=== PATIENT | female | born 1940 | race Caucasian/White ===

== ENCOUNTER 2024-11-19 18:23 | Observation (INO) | payer MEDICARE, SELFPAY ==
[2024-11-19] VITALS (10 sets, daily range): BP systolic 127–174; BP diastolic 66–114; BMI 25.8; BMI 25.2
--- NOTE | 2024-11-19 14:29 | ED.GENMED ---
History of Present Illness
General
Chief Complaint: Chest Pain
Source: patient and family
Exam Limitations: none
Time Seen by Provider: 11/19/24 14:03
Nursing documentation reviewed up to this point in time: agreed with
History of Present Illness
History of Present Illness:
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
uncommon for her developed pain in her chest into her left arm lasted about half hour or so mild nausea and sweatiness, did not go to her back or jaw, similar before never this severe, her mother lived into her 90s did have an CT with angina,
patient is currently chest pain-free
Past History
Past History
ED Past Medical History: Cancer (Breast cancer years ago with metastatic), Other (Metastatic) and Other (Reflux bladder issues); Negative CVA, HTN, CT, Renal failure or Seizures
ED Past Surgical History: Negative Cardiac
Social History
Tobacco: Non-smoker
Alcohol: Occasional
Drug: None
Living: with family
Employment: Retired
Phy Exam
Physical Exam
Physical Exam:
Physical Exam
General: no apparent distress, not acutely ill
Neck: No jaundice
Heart: s1/s2 regular rate and rhythm, no murmur. equal radial pulses.
Lungs: no acute respiratory distress. clear bilaterally
Abdomen: Nontender
Neuro: alert and oriented. no focal neurological deficits
Skin: no rash
Psychiatric: well kept. interactive and cooperative
Extremities: no edema.
Scores
Heart Score for Chest Pain Patients
STEMI patient?: No
History: Moderately Suspicious
ECG: Normal
Age: >/= 65 years
Risk Factors: 1 or 2 Risk Factors
Troponin: </= Normal Limit
Heart Score for Chest Pain Patients: 4
Heart Score Risk: 20.3% MACE over next 6 weeks
Course
Orders/Labs/Results
Orders:
Orders
11/19/24 Lunch
Cholesterol Lowering
At Your Request: Limited Participation
Cholesterol Lowering: Sodium, 2 Gram
11/19/24 13:16
ECG [Electrocardiogram (*1)] Urgent
Reason for Study: Chest Pain
EKG- Treatment ONCE
11/19/24 14:26
Aspirin 325 mg PO NOW STA
CR Chest - 2 Views Urgent
Comment:
Reason For Exam: cp
11/19/24 14:51
CMP [Comprehensive Metabolic Panel] Urgent
Complete Blood Count/With Diff Urgent
Troponin I Urgent
11/19/24 15:28
Metoprolol [Lopressor] 25 mg PO NOW STA
11/19/24 16:23
Troponin I Urgent
11/19/24 17:46
Electrocardiogram (*1) Urgent
Reason for Study: Chest Pain
EKG- Treatment ONCE
11/19/24 18:12
Admit/Transfer Patient As Directed
Co-Sign Provider:
Level of Care: Observation services
Assign to:: Telemetry
Physician / Group: mcrae/hospitalist
Diagnosis: chest pain
Reason for Telemetry: Chest Pain syndromes
Date to Stop Telemetry: 11/21/24
Time to Stop Telemetry: 11:00
11/19/24 18:13
PRN Pain Medication Management As Directed
May give lesser potent ordered pain med per pt: Yes
preference::
Protocol:: Medication orders for pain may be administered in a
manner that supports deferring to patient preference
when the pt is:
- Requesting an ordered lesser potent pain medication.
Least to most potent pain medications are defined
as: acetaminophen < NSAID < tramadol < opioids
(morphine, oxycodone, hydromorphone).
- Requesting a lesser dose of the same medication IF
ORDERED.
- Requesting a less intrusive route of administration
if both routes are prescribed by the provider (PO <
IV).
11/19/24 18:14
Code Status As Directed
Resuscitation Status: Full Code
11/19/24 20:36
Activity As Directed
Activity Level: Out of Bed-Early Mobility
INT (Intravenous Needle Therapy) As Directed
Comment: maintain peripheral IV access
Intake/ Output As Directed
Frequency: Per unit guidelines
Vital Signs As Directed
Frequency: q4h
Weight As Directed
Frequency: Daily
DX Deep Vein Thrombosis Video Routine
11/19/24 21:01
Troponin I Routine
11/20/24 08:00
Aspirin Chewable [Low Strength Aspirin] 81 mg PO DAILY
Cholecalciferol (Vitamin D3) [VITAMIN D3 (cholecalciferol)] 50 mcg PO DAILY
Dicyclomine [Bentyl] 10 mg PO DAILY
Famotidine [Pepcid] 20 mg PO DAILY
Mirabegron Extended Release [Myrbetriq Extended Release] 25 mg PO DAILY
11/20/24 08:35
Complete Blood Count/With Diff IN AM
Glycohemoglobin (HgbA1c) IN AM
11/20/24 08:36
Cardiovascular Evaluation IN AM
Comprehensive Metabolic Panel IN AM
11/20/24 18:00
Enoxaparin Sodium [Lovenox] 40 mg SC QPM
11/21/24 11:00
DC Protocol for Telemetry ONCE
Abnormal Lab Results
11/19/24
14:51
MCH 31.5 H pg
(27.0-31.0)
Absolute Monos (auto) 0.8 H 10^3/uL
(0.1-0.6)
Lymphocytes % 19.5 L %
(20.5-51.1)
BUN 19 H mg/dl
(7-17)
Total Protein 6.0 L g/dl
(6.3-8.2)
11/19/24 14:51
11/19/24 14:51
Vital Signs
Initial and Last Documented VS:
Initial Vital Signs
Temp Pulse Resp BP Pulse Ox
98.2 F 105 18 164/104 100
11/19/24 13:22 11/19/24 13:22 11/19/24 13:22 11/19/24 13:22 11/19/24 13:22
Last Documented Vital Signs
Temp Pulse Resp BP Pulse Ox
97.8 F 83 18 173/94 95
11/20/24 15:15 11/20/24 16:45 11/20/24 15:15 11/20/24 16:45 11/20/24 15:15
MDM/Problems Addressed
Differential Diagnosis Includes:
Angina ACS reflux less likely pancreatitis doubt PE symptoms have resolved
MDM/Problems Addressed:
Chest pain
Chronic conditions affecting care: Cancer
Acute Exacerbation and/or Progression of Chronic Illness: Cancer
*Radiology
Radiology exam reviewed: preliminary read by ED provider
*EKG
Interpreted by ED Provider?: Yes
Interpretation: abnormal
Comparison EKG: no comparison EKG present
Heart Rate: 106
Rate: tachycardiac
Rhythm: sinus
Ischemia: non-specific ST changes
*Dinkey Mechanic Interpretation
Rate: normal
Interpretation: normal
Heart Rate: 88
Rhythm: sinus
*Critical Care Note
Total Time (30-74mins, 75-104mins- exclusive of procedures): Not Applicable
Update Note
Update Note:
415, labs troponin noted chest x-ray noted given beta-litzy and aspirin will repeat her troponin
545 patient chest pain-free second troponin noted reviewed inpatient versus outpatient management patient is amenable to staying overnight which is not unreasonable
ED Attending Note
-
Portions of this chart may have been created with voice recognition software.� Occasional wrong word or��sound alike� substitutions may have occurred due to the inherent limitations of voice recognition software.
Discharge Plan
Departure
Patient Disposition: Admit
Date of Disposition: 11/19/24
Time of Disposition: 17:47
Admit to: Telemetry
Presentation/result/management discussed w/ accepting MD/DO: Hospitalist
Patient with high blood pressure during this ER visit?: Yes
Condition: Good
Covid-19: Not Applicable
Discharge Problem:
Chest pain
Interventions
Interventions:
*Risk Screen - Suicide Last Done: 11/19/24 13:22
*General Assessment Last Done: 11/19/24 13:22
*Neglect/Abuse Screening Last Done: 11/19/24 13:22
*ED COVID-19 Vaccine History Last Done: 11/19/24 13:22
*Nursing Disposition Last Done: 11/19/24 20:01
ED- Cardiac Assessment Last Done: 11/19/24 15:00
Discharge Date and Time
Discharge Date/Time: 11/19/24 20:03
[2024-11-19] MEDS: ASPIRIN 325 MG PO (14:55)
[2024-11-19 15:12] LABS: ALT (SGPT) 24 U/L (0-35); AST (SGOT) 34 U/L (14-36); Albumin 3.6 g/dl (3.5-5.0); Alkaline Phosphatase 100 U/L (38-126); Blood Urea Nitrogen 19 mg/dl (7-17); Carbon Dioxide 26 mmol/L (22-30); Chloride 105 mmol/L (98-107); Estimated Creatinine Clearance 43 ml/min; Glucose 94 mg/dl (70-99); Sodium 135 mmol/L (135-145); Total Bilirubin 0.6 mg/dl (0.2-1.3); eGFR > 60.00
[2024-11-19 15:13] LABS: % Basophils 0.4 % (0-2); % Eosinophils 1.1 % (0-6); % Immature Granulocytes 0.4 % (0-0.5); % Lymphocytes 19.5 % (20.5-51.1); % Monocytes 9.3 % (1.7-9.3); % Neutrophils 69.3 % (42.2-75.2); Absolute Eosinophils 0.1 10^3/uL (0-0.7); Absolute Lymphocytes 1.6 10^3/uL (1.2-3.4); Absolute Monocytes 0.8 10^3/uL (0.1-0.6); Absolute Neutrophils 5.8 10^3/uL (1.4-6.5); Hematocrit 40.5 % (37.0-47.0); Hemoglobin 13.6 g/dL (12.0-16.0); Mean Corp Hgb Conc. 33.6 g/dL (33.0-37.0); Mean Corpuscular Hgb 31.5 pg (27.0-31.0); Mean Corpuscular Volume 93.8 fL (81.0-99.0); Mean Platelet Volume 9.5 fL (7.4-10.4); Nucleated Red Blood Cells % 0 %; Platelet Count 240 10^3/uL (130-400); Red Blood Cell Count 4.32 10^6/uL (4.20-5.40); Red Cell Dist. Width 12.7 % (11.5-14.5); White Blood Cell Count 8.4 10^3/uL (4.8-10.8)
[2024-11-19 15:23] LABS: Troponin I 0.029 ng/ml
[2024-11-19] MEDS: LOPRESSOR 25 MG PO (15:43)
[2024-11-19 17:14] LABS: Troponin I 0.034 ng/ml
--- NOTE | 2024-11-19 18:08 | HPS.HSE ---
Family Physician
-
Family Physician: Ajay Sinclair
Chief Complaint
-
chest pain
History of Present Illness
84-year-old female who is presenting with complaint of left sided substernal chest pain. Patient states she was driving when the chest pain occurred. It was left substernal with radiation to left shoulder and jaw. Pain lasted for approximately 30
minutes. Resolved on its own. No aggravating alleviating factor. States at baseline she is able to ambulate without any chest pain or shortness of breath. Denies any PND orthopnea. Denies any prior cardiac history. Denies any prior coronary
artery stent placement. Denies prior history of heart failure. Denies recent prolonged immobilization. Denies any lower extremity edema. Denies any nausea or vomiting. Patient denied any diaphoresis during chest pain. States under increasing
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
Medical History
Past Medical History
Past Medical History: Reports Other
Additional Past Medical History:
Urinary incontience
IBS
Breast cancer status post mastectomy
Past Surgical History: Reports Other
Additional Past Surgical History:
mastectomy
Social History
Tobacco: Non-smoker
Alcohol: Daily (maunie )
Employment: Employed ([employer] teacher)
Family History
Family History: Not pertinent
Allergies / Home Medications
Allergies reflects when Allergies were last updated in [facility].
Home Medications with original date entered in [facility]
Allergy/Medication List:
Allergies
Allergy/AdvReac Type Severity Reaction Status Date / Time
No Known Allergies Allergy Verified 11/19/24 13:26
Home Medications
cholecalciferol (vitamin D3) 50 mcg (2,000 unit) tablet (Vitamin D3) 50 mcg PO DAILY 11/19/24
dicyclomine 10 mg capsule 10 mg PO DAILY 11/19/24
mirabegron 25 mg tablet,extended release 24 hr (Myrbetriq) 25 mg PO DAILY 11/19/24
Review of Systems
-
History Source: Patient
A 12 point ROS was completed and negative except as noted: Yes
Physical Exam
Vital Signs
Vital Signs
Temp Pulse Resp BP Pulse Ox
98.2 F 95 19 156/89 95
11/19/24 13:22 11/19/24 16:00 11/19/24 16:00 11/19/24 16:00 11/19/24 16:30
Physical Exam
General: Well Developed, Well Nourished and No Apparent Distress
HEENT: NormoCephalic, Moist mucous membranes and Atraumatic
Respiratory: Clear
Cardiac: S1/S2 and Regular Rhythm; No Murmur or Rub
GI: Soft, Non Tender, Non Distended and Normal Bowel Sounds; No Organomegaly
Rectal: Deferred by Provider
Musculoskeletal: No Clubbing, No Cyanosis and No Edema
Skin: No Rash
Neuro: Awake, Alert, Oriented, AO x 3, No Motor Deficits and Nonfocal/grossly intact
Psych: Calm
Laboratory Results
-
11/19/24 14:51
11/19/24 14:51
Laboratory Results
Total Bilirubin 0.6 mg/dl (0.2-1.3) 11/19/24 14:51
AST 34 U/L (14-36) 11/19/24 14:51
ALT 24 U/L (0-35) 11/19/24 14:51
Alkaline Phosphatase 100 U/L (38-126) 11/19/24 14:51
Troponin I 0.034 ng/ml 11/19/24 16:23
Impression/Plan
-
#Chest pain/ Stable angina
Trop flat so far.
EKG with normal sinus rhythm. Ventricular rate of 69. No acute ST or T wave changes noted.
Check lipid panel and A1c
Elevated blood pressure start statin. Losartan
Check echocardiogram and assess for any wall motion abnormality.
Nitroglycerin as needed for pain. If does not resolve with As needed NTG then start nitro infusion.
Pepcid daily
Status post 325 mg aspirin in ER. Start 81 mg aspirin daily, Lipitor 40 mg and Toprol.
Chest x-ray was negative for acute infiltrate or pulmonary edema.
Under increasing amount of workload/stress
Cards eval
#IBS
Continue with Bentyl
#Vitamin D deficiency
Continue with p.o. supplements
DVT ppx-lovenox
Full code
I spent a total of 78 minutes with the patient or on the floor. More than 50% of this time involved counseling and coordination of care.
d/w with cardiology
--- NOTE | 2024-11-19 20:35 | PTCARENOTE ---
Patient received from ED via stretcher. Patient walked into the room with assistance. Accompanied by her daughter. AAOx3, VSS. Patient has no current complaints of any pain. Educated on plan of care and medications. Oriented to the room, call tucker
is within reach.
[2024-11-19] MEDS: NSS 500 IV (21:07)
[2024-11-19] MEDS: COZAAR 25 MG PO (21:08)
[2024-11-19 21:35] LABS: Troponin I 0.025 ng/ml
[2024-11-20] VITALS (11 sets, daily range): BP systolic 147–196; BP diastolic 65–94; BMI 25.1
--- NOTE | 2024-11-20 08:19 | CON.CAR ---
Addendum entered and electronically signed by Giacomo Ariza MD 11/20/24 09:36:
I saw and examined the patient.
The ORTHOPEDIC TECHNICIAN's note was reviewed and I agree with the note.
Comment:
84-year-old female with prior breast cancer who presented to the emergency department with a chief complaint of chest pain. She reports that she intermittently has chest pain but that it usually only lasts a few minutes and resolves on its own.
Yesterday she had a similar pain that lasted for about 30 minutes and radiated to her left arm. Was associated with some diaphoresis. It eventually resolved on its own but she told her daughter who is an RN and they came into the ED. Here her ECG
showed sinus rhythm with no ischemic changes. Troponin was 0.029 -> 0.034 -> 0.025. She is chest pain-free at this time and has been since her episode yesterday. Exam is notable for a well-appearing elderly female. Cardiovascular exam with
regular rate and rhythm, no murmur/rub/gallops, no lower extremity edema, clear lungs bilaterally. Labs notable for troponin as previously mentioned, creatinine 0.8, otherwise unremarkable. Echocardiogram pending. We will plan to rule out
obstructive epicardial coronary artery disease with left heart catheterization. I spoke with her daughter and she and her family are agreeable to this plan. She was given aspirin 325 mg in the ED and has been started on aspirin 81 mg daily,
atorvastatin 40 mg, metoprolol 12.5 mg daily and losartan 25 mg nightly for elevated blood pressures. We will see what her catheterization shows and titrate her antihypertensives.
Original Note:
Consultation
Consultation Request
Date/Time Consultation Requested: 11/19/2024 18:30
Date/Time Consultation Performed: 11/20/2024 07:45
Requesting Provider: Dr. Betancourt
Performing Provider: DARIUSZ Reece for Dr. Ariza
Reason for Consultation: Chest pain
Medical History
-
Chief Complaint: Chest pain
History of Present Illness:
Pastora Ritter is an 84-year-old female with prior breast cancer who presented to the emergency department with a chief complaint of chest pain. She was in the car driving [place] when she had midsternal anterior chest pressure. It radiated
down her left arm. She denies jaw discomfort. She endorsed associated fatigue and flushing. It lasted approximately 30 minutes. She is currently chest pain-free. She does endorse intermittent bouts of chest pain over the past several months.
Normally it only lasts a few minutes and spontaneously resolves. A month ago she had chest pain that lasted for about 10 minutes while she is getting ready for bed. She took some ibuprofen and went to sleep. She woke up in the morning in her
usual state of health. Troponin remains flat. EKG without acute ischemia.
Past Medical History
Past Medical History: Cancer (Breast)
Past Surgical History: Other (Mastectomy)
Social History
Tobacco: Former Smoker (Quit in the 70s)
Alcohol: Daily (one)
Drug: None
Living: Alone
Employment: Employed (Teacher)
Family History
Family History: Reviewed & Not Pertinent
Allergies / Home Medications
Allergy/AdvReac Type Severity Reaction Status Date / Time
No Known Allergies Allergy Verified 11/19/24 13:26
�Medication �Instructions �Recorded �Confirmed �Type
cholecalciferol (vitamin D3) 50 50 mcg PO DAILY Supplement 11/19/24 11/19/24 History
mcg (2,000 unit) tablet (Vitamin
D3)
dicyclomine 10 mg capsule 10 mg PO DAILY IBS 11/19/24 11/19/24 History
mirabegron 25 mg tablet,extended 25 mg PO DAILY Mental 11/19/24 11/19/24 History
release 24 hr (Myrbetriq) Health/Anxiety
Review of Systems
-
History Source: Patient
All other systems: Negative unless noted
Constitutional: No Symptoms
EENT: No Symptoms
Respiratory: No Symptoms
Cardiac: No Symptoms
Abdomen/GI: No Symptoms
: No Symptoms
Musculoskeletal: No Symptoms
Skin: No Symptoms
Neurological: No Symptoms
Endocrine: No Symptoms
Hematologic/Lymphatic: No Symptoms
Physical Exam
Vital Signs
Temp Pulse Resp BP Pulse Ox
97.6 F 77 17 160/72 92
11/20/24 03:29 11/20/24 03:29 11/20/24 03:29 11/20/24 03:29 11/20/24 03:29
Lab Results
Troponin I 0.025 ng/ml D 11/19/24 21:01
Physical Exam
General: Well Developed, Well Nourished, No Apparent Distress and Comfortable
HEENT: Normocephalic, Anicteric and Moist Mucous Membranes
Respiratory: Clear and Non Labored Respirations
Cardiac: S1/S2 and Regular Rhythm; Negative Peripheral Edema
Breast: Deferred by me
GI: Soft, Non Tender, Non Distended and Normal Bowel Sounds
Rectal: Deferred by Provider
Genito-urinary: No Costovertebral Tender
Musculoskeletal: No Cyanosis and No Edema
Skin: Warm and Dry
Neuro: AO x 3
Hematologic/Lymphatic: No Lymphadenopathy
Psych: Calm
Impression / Plan
-
IMPRESSION/PLAN: 84F with prior breast cancer S/P mastectomy and chemotherapy presents with chest pressure
Chest pressure
-With radiation into her left arm lasting 30 minutes
-Troponin flat
-EKG stable
-Echocardiogram today
-Labs are pending
-LHC today
Hypertension
-Anticipate starting medical therapy after echocardiogram completed
Prior breast cancer, status post mastectomy and chemotherapy, no XRT
Data Reviewed
-
EKG: Report Reviewed by me
Labs: Labs Reviewed by me
Old Records: Reviewed
[2024-11-20] MEDS: TOPROL XL 12.5 MG PO (08:25)
[2024-11-20] MEDS: PEPCID 20 MG PO (08:25)
[2024-11-20] MEDS: LOW STRENGTH ASPIRIN 81 MG PO (08:25)
[2024-11-20] MEDS: MYRBETRIQ EXTENDED RELEASE 25 MG PO (08:25)
[2024-11-20] MEDS: VITAMIN D3 (cholecalciferol) 50 MCG PO (08:25)
[2024-11-20] MEDS: BENTYL 10 MG PO (08:26)
--- NOTE | 2024-11-20 08:41 | W.PN.HOSP.TC ---
Addendum entered and electronically signed by Lloyd Ferrell DO 11/20/24 12:34:
Cardiac authorization completed, nonobstructive CAD.
Cardiology okay with discharge home today.
Discussed findings with the patient's daughter Josie on the phone. All questions answered.
Medically stable for discharge home today with outpatient follow-up recommended.
Original Note:
Today's Communication/Plan
-
Await decision on cardiac catheterization
Assessment / Plan
Assessment / Plan
Gen-AAOx3, NAD
HEENT-NC, AT, anicteric, clear oral mm
Neck-supple
CV-reg, no M, +S1/S2
Lungs-clear B/L
Abd-soft, NT, ND
Ext-no edema
Musculoskeletal-no cyanosis, clubbing
Skin-warm and dry
Neuro-grossly non-focal
Psych-calm, cooperative
Substernal chest pain -lasted about 30 minutes, occurred while driving. Troponins negative so far. Symptoms resolved. Cardiology consulted, recommendation is for cardiac catheterization but patient's daughter wants time to think about it.
Patient denies cardiac history.
IBS
Urinary incontinence
History of breast cancer --s/p mastectomy.
Full code
Anticipated Discharge: 24 - 48 hours
Subjective/Interval History
-
Date of Service: November 20, 2024
Patient seen and examined. No symptoms. No complaints.
Objective Data
-
Labs:
Laboratory Results
11/20/24 11/20/24
08:35 08:36
WBC Pending
Hgb Pending
Hct Pending
Plt Count Pending
Sodium Pending
Potassium Pending
Chloride Pending
Carbon Dioxide Pending
BUN Pending
Creatinine Pending
Glucose Pending
Calcium Pending
Total Bilirubin Pending
AST Pending
ALT Pending
Alkaline Phosphatase Pending
Vital Signs:
Vital Signs
Temp Pulse Resp BP Pulse Ox
97.6 F 77 17 160/72 92
11/20/24 03:29 11/20/24 03:29 11/20/24 03:29 11/20/24 03:29 11/20/24 03:29
I&O
11/19/24 11/20/24 11/21/24
06:59 06:59 06:59
Intake Total 1480 / 1480
Balance 1480 / 1480
Review of Systems
-
History Source: Patient
All other systems: Reviewed and negative
[2024-11-20 09:03] LABS: % Basophils 0.5 % (0-2); % Eosinophils 3.5 % (0-6); % Immature Granulocytes 0.2 % (0-0.5); % Lymphocytes 32.6 % (20.5-51.1); % Monocytes 10.2 % (1.7-9.3); Absolute Eosinophils 0.2 10^3/uL (0-0.7); Absolute Lymphocytes 1.8 10^3/uL (1.2-3.4); Absolute Monocytes 0.6 10^3/uL (0.1-0.6); Absolute Neutrophils 2.9 10^3/uL (1.4-6.5); Hematocrit 39.9 % (37.0-47.0); Hemoglobin 13.4 g/dL (12.0-16.0); Mean Corp Hgb Conc. 33.6 g/dL (33.0-37.0); Mean Corpuscular Hgb 31.2 pg (27.0-31.0); Mean Platelet Volume 9.5 fL (7.4-10.4); Nucleated Red Blood Cells % 0 %; Platelet Count 227 10^3/uL (130-400); Red Blood Cell Count 4.29 10^6/uL (4.20-5.40); Red Cell Dist. Width 12.9 % (11.5-14.5); White Blood Cell Count 5.5 10^3/uL (4.8-10.8)
[2024-11-20 09:38] LABS: ALT (SGPT) 23 U/L (0-35); AST (SGOT) 26 U/L (14-36); Albumin 3.5 g/dl (3.5-5.0); Alkaline Phosphatase 83 U/L (38-126); Blood Urea Nitrogen 14 mg/dl (7-17); Calcium 8.8 mg/dl (8.4-10.2); Carbon Dioxide 26 mmol/L (22-30); Chloride 111 mmol/L (98-107); Estimated Creatinine Clearance 43 ml/min; Glucose 91 mg/dl (70-99); HDL Cholesterol 94 mg/dl; LDL Cholesterol, Calculated 75 mg/dl; Potassium 4.1 mmol/L (3.5-5.1); Sodium 139 mmol/L (135-145); Total Bilirubin 0.7 mg/dl (0.2-1.3); Total Cholesterol 185 mg/dl (50-199); Total Protein 5.9 g/dl (6.3-8.2); Triglyceride 84 mg/dl (10-149); Very Low Density Lipoprotein 16 mg/dl (0-30); eGFR > 60.00
[2024-11-20 11:08] LABS: ACT-LR - POC 374 Seconds (116-155)
--- NOTE | 2024-11-20 11:22 | ITS.CL.CATH ---
Patent Engineer - Catheterization
Cardiac Catheterization
Procedure Report:
CARDIAC CATHETERIZATION REPORT
Date of Procedure: 11/20/2024
Referring: Giacomo Ariza M.D.
INDICATION: Typical chest pain.
PROCEDURE:
1. Left heart catheterization.
2. Coronary angiography.
3. Successful IFR of the left circumflex.
4. Successful IFR of the mid LAD.
ACCESS:
6 [place] right radial artery.
CATHETERS:
1. 5 [place] JR4.
2. 5 Grenadian JL 3.5.
3. 6 [place] JL 3.5 guiding catheter.
HEMODYNAMIC DATA
Weight (kg): 64.2
AO (s/d/x, mmHg): 147/59/91
LV (s/x mmHg): 149/8
LEFT VENTRICULOGRAPHY: Not performed
CORONARY ANGIOGRAPHY
Dominance: Right.
Left Main: Normal size, bifurcating vessel. There is no coronary artery disease.
LAD: Normal size vessel giving rise to 1 diagonal. There is a 50-60% lesion in the mid vessel, right at the origin of the first diagonal. There is a 90% lesion in the ostium of the first septal freight sales broker. The distal LAD is severely tortuous.
Ramus: Congenitally absent.
Circumflex: Large size, nondominant vessel giving rise to a single, large marginal. There is a 60% lesion in the circumflex as it becomes OM1. The terminal OM1 is severely tortuous.
RCA: Large size, dominant vessel. There is no coronary artery disease.
INTERVENTION(S)
1. Successful IFR of the 60% circumflex/OM1 lesion, demonstrating nonocclusive disease (IFR = 1.0).
2. Successful IFR of the 50-60% mid LAD lesion, demonstrating nonocclusive disease (IFR = 1.0).
Narrative:
The decision was made to perform physiologic testing. The diagnostic catheter was removed over a wire and exchanged for a(n) 6 Grenadian JL 3.5 guiding catheter. The guiding catheter was advanced into the ascending aorta and seated in the left main
coronary artery. Additional heparin was given to obtain an ACT greater than 250 seconds. An iFR wire was zeroed outside of the body, then inserted into the guiding sheath. The wire was advanced and the transducer was normalized just outside of the
guiding catheter tip. The wire was advanced into the into the first obtuse marginal with some difficulty. Three iFR measurements were taken. The lesion was determined to be nonocclusive (1.0).
We then turned our attention to the 50-60% mid LAD lesion. The IFR wire was redirected into the LAD. The IFR wire was renormalized and advanced into the mid LAD, beyond the lesion in question. Initially, the lesion measured as occlusive, with an
IFR of 0.75. On pullback, the IFR had severely drifted, measuring 0.75 at the catheter tip. The IFR was renormalized and advanced into the mid LAD a second time, at this time with an IFR >1.0. Once again, the wire was pulled back with no
significant change in the IFR at the catheter tip. The IFR wire was normalized a third time and advanced into the mid LAD, once again measuring >1.0, but closer to 1.0 than previously. Pullback was measured again with no appreciable drop in IFR.
Based on these findings, we concluded that the lesion is nonocclusive as there was no step up in pressure across the lesion. Final angiography showed stable vessels with no evidence of dissection or perforation. The catheter was disengaged and the
wire was withdrawn. The catheter was removed and a vascular band was used for hemostasis.
Closure Device: Vascular band.
Radiation (mGy): 412.77
DAP (cm2.Gy): 36.3920
Fluoroscopy time (minutes): 8.3
Sedation time (minutes): 43
CONCLUSIONS
1. Right dominant circulation with a nonocclusive 50-60% mid LAD lesion (IFR = 1.0), a 90% lesion in the ostium of the first septal freight sales broker and a nonocclusive 60% lesion in the left circumflex as it becomes OM1 (IFR = 1.0).
2. Normal filling pressures (LVEDP = 8 mmHg at 64.2 kg).
3. Severe wire drift on the [place] wire.
RECOMMENDATIONS:
1. Expectant management after cardiac catheterization via right radial approach.
2. Limited weight bearing on the right wrist for one week.
3. Aggressive primary prevention with high-dose, high potency statin.
4. Continue aspirin 81 mg daily.
5. Guideline directed medical therapy as hemodynamics will tolerate.
Copy to: Ajay Sinclair D.O.,
Cristhian Vicente, , FACC, FACP
--- NOTE | 2024-11-20 12:30 | PTCARENOTE ---
Pt returned from [facility]. Report from Janeth AYALA.Pt awake,alert and oriented x3. Pt has no c/o pain NSR on tele.95% on RA R band to right wrist intact refer to cath flow sheet. pt bp elevated,primary MD aware ( Dr Ferrell) okay for discharge once R
band removed. Pt oriented to room,call tucker within reach, plan of care continues.
--- NOTE | 2024-11-20 12:31 | W.DS.TRANS ---
DC Summary - Trial Attorney
-
Discharge Instructions:
Discharge Diagnosis/Procedures Chest pain, cardiac catheterization
Diet Low Cholesterol,Low Fat
Activity Other activity
Additional Activity Limit weightbearing on the right wrist for 1
week
Driving Restrictions No driving for 24 hours
Bathing Restrictions None
Instructions:
Stand-Alone Forms: DC Instructions- Cath/EP Lab
Changes to Home Medications: No
Discharge Medications:
DC Medications w/original date entered in [employer]
cholecalciferol (vitamin D3) 50 mcg (2,000 unit) tablet (Vitamin D3) 50 mcg PO DAILY Supplement 11/19/24
dicyclomine 10 mg capsule 10 mg PO DAILY IBS 11/19/24
mirabegron 25 mg tablet,extended release 24 hr (Myrbetriq) 25 mg PO DAILY Mental Health/Anxiety 11/19/24
aspirin 81 mg chewable tablet 81 mg PO DAILY #90 tabs 11/20/24
atorvastatin 40 mg tablet 40 mg PO QPM #30 tabs 11/20/24
losartan 25 mg tablet 25 mg PO HS #30 tabs 11/20/24
metoprolol succinate 25 mg tablet,extended release 24 hr (Toprol XL) 25 mg PO DAILY #30 tabs 11/20/24
Home Medication Changes
Pending Results: No
[2024-11-20 13:06] LABS: Glycohemoglobin (HgbA1c) 5.3 % (4.0-5.6)
--- NOTE | 2024-11-20 13:11 | CM ---
Pt seen bedside w/ daughter, Kaye. Initial assessment completed.
Pt lives alone in a [place]ST[address]- steps to enter from the front and from the garage. Pt states she has a first flr set up and does not need to go upstairs on the other levels.
Pt is independent w/ ambulating, no devices. Pt states she has grab bars in the bathroom.
Denies SNF/VN/PT hx
Address, point of contact and insurance verified
PCP: Dr. Ajay Sinclair
Pharmacy: [facility]
Pt currently admitted as OBS. CHAKRABORTY form reviewed, pt given copy. Copy in chart
Pt is being d/c home today. IMM reviewed, pt given copy. Copy in chart
Pt's daughter will transport home
No CM needs at this time
Plan: Home; no needs
== END 2024-11-20 17:11 | disposition home or self-care (01) ==
LOC: 4 EAST ACU 18:23
PROVIDERS: Emergency Medicine; ADMITTING PHYSICIAN Hospitalist; ATTENDING PHYSICIAN Hospitalist; CONSULT PHYSICIAN Student in an Organized Health Care Education/Training Program; EMERGENCY PHYSICIAN Emergency Medicine; FAMILY PHYSICIAN Family Medicine
DX: R07.9 Chest pain, unspecified (principal); K21.9 Gastro-esophageal reflux disease without esophagitis; I10 Essential (primary) hypertension; K58.9 Irritable bowel syndrome, unspecified; E55.9 Vitamin D deficiency, unspecified; R23.2 Flushing; R32 Unspecified urinary incontinence; R53.83 Other fatigue; R00.0 Tachycardia, unspecified; I08.1 Rheumatic disorders of both mitral and tricuspid valves; Z85.3 Personal history of malignant neoplasm of breast; Z90.10 Acquired absence of unspecified breast and nipple; Z87.891 Personal history of nicotine dependence; Z92.21 Personal history of antineoplastic chemotherapy; Z60.2 Problems related to living alone
CPT/HCPCS: 93458; 0523T; 71046; 80053; 80061; 83036; 84484; 85025; 93005; 93306; 99285; G0378